=== PATIENT | male | born 1940 | race Caucasian/White ===

== ENCOUNTER 2020-06-16 11:54 | Emergency (ER) | payer OTHER ==
[~2020-06-16] VITALS: Ht 188 cm; Wt 158.8 kg
[~2020-06-16 11:54] MED LIST: ADVIL100 M2 PO; BLOOD PRESSURE1 EA10; CIPROFLOXACIN500 M1 PO; COZAAR100 MG PO; DARVOCET-N 1001 EACH PO; ENDOCET 5-3251 EACH PO; IBUPROFEN 200200 M1 PO; IBUPROFEN200 M2 PO; INDOMETHACIN 5050 M1 PO; KEFLEX500 MG PO; MOBIC15 MG PO; NEURONTIN 300300 M1 PO; NORCO 5-325 TA1 EACH PO; NORVASC 5 MG TAB5 MG PO; NORVASC10 MG PO; NORVASC5 MG PO; PERCOCET 10-321 EACH PO
[2020-06-16] MEDS ORDERED: LEVOTHYROXINE25 MCG PO (12:09)
[2020-06-16 14:09] LABS: HEMATOCRIT 40.9 % (42.0-52.0); HEMOGLOBIN 13.3 gm/dL (14.0-18.0); MCH 30.6 pg (26.0-34.0); MCHC 32.6 g/dL (28.0-37.0); MCV 93.7 fL (80.0-100.0); RBC 4.37 mil/uL (4.50-6.00); RDW 14.7 % (10.5-14.5); WBC 12.5 thou/uL (4.0-11.0)
[2020-06-16 14:18] LABS: CALCIUM 9.1 mg/dL (8.5-10.1); CREATININE 1.1 mg/dL (0.7-1.3)
[2020-06-16] MEDS ORDERED: NORCO 10-325 T1 EACH PO (15:32)
[2020-06-16 17:16] VITALS: BP 158/98
== END 2020-06-16 17:16 | disposition home or self-care (01) ==
LOC: ER 11:54
PROVIDERS: Physician Assistant
DX: S82.142A Displaced bicondylar fracture of left tibia, initial encounter for closed fracture (principal); I10 Essential (primary) hypertension; Z79.899 Other long term (current) drug therapy; V49.9XXA Car occupant (driver) (passenger) injured in unspecified traffic accident, initial encounter; Y93.89 Activity, other specified; Y92.89 Other specified places as the place of occurrence of the external cause; Y99.8 Other external cause status

== ENCOUNTER 2020-06-20 09:26 | Inpatient (IN) | payer OTHER ==
[~2020-06-20] VITALS: Ht 188 cm; Wt 123.5 kg
[~2020-06-20 09:26] MED LIST changes: +LEVOTHYROXINE25 MCG PO; +NORCO 10-325 T1 EACH PO
[2020-06-20] MEDS ORDERED: NORVASC5 MG PO (10:48)
[2020-06-20] MEDS ORDERED: ATORVASTATIN CA10 MG PO (10:49)
[2020-06-20] MEDS ORDERED: LOSARTAN POTASS50 MG PO (10:49)
[2020-06-20] MEDS ORDERED: PROAIR HFA8.5 GM INH (10:50)
[2020-06-20] MEDS ORDERED: MECLIZINE HCL25 MG PO (10:50)
[2020-06-20 11:08] LABS: ABSOLUTE NEUTROPHILS 12.7 thou/uL (1.4-8.2); BASOPHILS 0.6 % (0.0-2.0); EOSINOPHILS 0.3 % (0.0-3.0); HEMATOCRIT 40.4 % (42.0-52.0); HEMOGLOBIN 13.1 gm/dL (14.0-18.0); LYMPHOCYTES 6.3 % (24.0-44.0); MCH 30.3 pg (26.0-34.0); MCHC 32.4 g/dL (28.0-37.0); MCV 93.6 fL (80.0-100.0); MONOCYTES 8.4 % (1.0-8.0); PLATELET COUNT 206 thou/uL (150-400); POLYS 84.4 % (36.0-66.0); RBC 4.31 mil/uL (4.50-6.00); RDW 14.9 % (10.5-14.5)
[2020-06-20] MEDS ORDERED: WIXELA 250-501 EACH INH (11:11)
[2020-06-20 11:21] LABS: CREATININE 1.4 mg/dL (0.7-1.3); POTASSIUM 4.5 mmol/L (3.5-5.1)
[2020-06-20 11:26] LABS: MAGNESIUM 2.1 mg/dL (1.8-2.4)
[2020-06-20 12:36] LABS: URINE BILIRUBIN 2+ (Negative); URINE BLOOD NEGATIVE (Negative); URINE CLARITY CLEAR; URINE GLUCOSE-RANDOM* NEGATIVE (Negative); URINE KETONES TRACE (Negative); URINE LEUKOCYTES-REFLEX NEGATIVE (Negative); URINE NITRITE-REFLEX NEGATIVE (Negative); URINE PROTEIN (DIPSTICK) TRACE (Negative); URINE SPECIFIC GRAVITY >= 1.030 (1.005-1.035)
[2020-06-20 12:43] LABS: ICTOTEST (BILI CONFIRMATORY) Positive (Negative); URINE COLOR AMBER
[2020-06-20 18:23] LABS: ALBUMIN 3.3 g/dL (3.4-5.0); DIRECT BILIRUBIN 0.4 mg/dL (<0.1-0.2); TOTAL BILIRUBIN 1.1 mg/dL (0.2-1.0); TOTAL PROTEIN 6.7 g/dL (6.4-8.2)
[2020-06-21 01:10] VITALS: BP 138/74
[2020-06-21 01:25] VITALS: BP 145/80
--- NOTE | 2020-06-21 03:50 | NUR ---
ASSUMED CARE OF PATIENT FROM ER. PATIENT YELLING, CUSSING, UPSET AND IN PAIN. HYDROCODONE GIVEN. ORIENTATION NEEDED MANY TIMES. DENIES CONCERN ABOUT HOME SITUATION. STATES HE HAS A GIRLFRIEND NAMED MELITON. IS CONCERNED HE DOESN'T HAVE HIS AMEX CC. GAVE HIM CUSTOMER SERVICE #. HAS CELL PHONE. LEG REMAINS IN BRACE. PHOTO TAKEN OF WOUNDS. CLOTHING SOAKED IN URINE. POC GOALS ESTABLISHED.
[2020-06-21 05:30] VITALS: BP 127/77
[2020-06-21 05:44] LABS: HEMATOCRIT 28.5 % (42.0-52.0); MCH 30.1 pg (26.0-34.0); MCHC 33.1 g/dL (28.0-37.0); MCV 90.8 fL (80.0-100.0); RBC 3.14 mil/uL (4.50-6.00); RDW 20.7 % (10.5-14.5)
[2020-06-21 05:48] LABS: HEMOGLOBIN 9.4 gm/dL (14.0-18.0); PLATELET COUNT 664 thou/uL (150-400)
[2020-06-21 06:31] LABS: ALBUMIN 2.2 g/dL (3.4-5.0); CALCIUM 8.5 mg/dL (8.5-10.1); CREATININE 0.9 mg/dL (0.7-1.3); MAGNESIUM 1.6 mg/dL (1.8-2.4); PHOSPHORUS 4.3 mg/dL (2.5-4.9); TOTAL BILIRUBIN 0.2 mg/dL (0.2-1.0); TOTAL PROTEIN 7.4 g/dL (6.4-8.2)
[2020-06-21 08:00] VITALS: BP 143/75
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
[2020-06-21 09:47] LABS: ABSOLUTE NEUTROPHILS 2.1 thou/uL (1.4-8.2); METAMYELOCYTES 1 %; PLATELET ESTIMATE INCREASED
[2020-06-21 09:48] LABS: ANISOCYTOSIS 1+
[2020-06-21 10:30] LABS: HEMATOCRIT 36.6 % (42.0-52.0); MCHC 31.8 g/dL (28.0-37.0); MCV 94.4 fL (80.0-100.0); RBC 3.87 mil/uL (4.50-6.00); RDW 15.1 % (10.5-14.5)
[2020-06-21 10:42] LABS: CALCIUM 8.6 mg/dL (8.5-10.1); CREATININE 1.2 mg/dL (0.7-1.3); POTASSIUM 4.1 mmol/L (3.5-5.1)
[2020-06-21 11:32] LABS: HEMOGLOBIN 11.6 gm/dL (14.0-18.0); WBC 12.9 thou/uL (4.0-11.0)
[2020-06-21 11:51] LABS: OBSERVED RETIC COUNT 2.42 % (0.6-2.6)
[2020-06-21 11:55] LABS: % SATURATION 8 % (20-39); IRON 16 ug/dL (65-175); TIBC 191 ug/dL (250-450)
[2020-06-21 12:25] LABS: FOLIC ACID 7.3 ng/mL (8.6-58.9)
[2020-06-21 14:05] VITALS: BP 124/72
[2020-06-21 19:33] VITALS: BP 135/66
--- NOTE | 2020-06-21 19:55 | NUR ---
Assumed care of pt. at 0700. Pt. was confused and could be partially reoriented to place and time, but continued to forget all given teaching and reorientation. Pt. yelled for assistance throughout the day, was unable to remeber to use the call light. At times pt. would yell out random names and when asked who he was reffering to he would say he didn't know. Pt. became increasingly disoriented into the afternoon. Physician notified, requested consult order for Dr. Tipton, no further orders given. Fall precautions in place.
[2020-06-22 00:06] LABS: GLYCOHEMOGLOBIN (HGB A1C) 6.5 % (4.8-5.6)
[2020-06-22 00:06] LABS: GLYCOHEMOGLOBIN (HGB A1C) 6.4 % (4.8-5.6)
--- NOTE | 2020-06-22 04:06 | NUR ---
PT HAS BEEN CONFUSED AND RESTLESS ALL THRO THE SHIFT. STARTED OFF SHIFT BY RIPPING HIS IV AND YELLING CONTINOUSLY WITH NO SUCCESS IN REORIENTATION. HALDOL IVP GIVEN AT 2005, PT CALMED DOWN ALITTLE, SLEPT FOR ABOUT ONE HR THEN STARTED CALLING OUT AGAIN. PT RIPPED HIS IV AGAIN, WITH BLOOD ALL OVER.MCDONALD CATHETER IN PLACE. CASH APPLICATION CLERK CALLED AND OKAY TO KEEP IV OFF. PT BEEN GIVEN NORCO X1 FOR LLE PAIN. HE SWALLOWS OKAY AND DRINKS WATER WHEN GIVEN. VSS. IMMOBILIZER TO LEFT LLE.ABDOMEN ROUND AND DISTENDED WITH BOWEL SOUNDS PRESENT.MCDONALD STILL IN PLACE WITH DARK YELLOW URINE.FREQUENT CHECKS PROVIDED. PT WILL ALSO NOT KEEP HIS OXYGEN ON.AT THIS TIME , HE APPEARS TO BE QUIETLY SLEEPING.FALL PREC IN PLACE.
[2020-06-22 08:51] VITALS: BP 150/93
--- NOTE | 2020-06-22 08:57 | NUR ---
LATE NOTE: S.C. CONSULT [id number] WAS COMPLETED BY FR. LE ON 06/21/2020.
--- NOTE | 2020-06-22 11:03 | NUR ---
ASSUMED CARE AT 0700. PT IS DISORIENTED AND CONFUSED. DENIES PAIN BUT COMPLAINS OF SOA. WHEN I CAME INTO THE ROOM TO CHECK HIS VS, O2 WAS 87 WITHOUT THE NASAL CANALA. I EDUCATED THE PATIENT THE IMPORTANCE OF KEEPING NC ON. ONCE I PUT NC ON, PT O2 IS NOW 100%. WILL CONTINUE TO MONITOR. LAST BM WAS 6 OR 7 DAYS AGO ACCORDING TO PT. DOCTOR WILL BE ORDERING MEDICATION TO HELP WITH CONSTIPATION. PT IS ON REGULAR DIET; HOWEVER, PT DID NOT EAT BREAKFAST AND VERY CONFUSED ON SAYING THAT WE ARE NOT GIVING HIM BREAKFAST AFTER I EXPLAINED THAT BREAKFAST IS NEAR. PT COMPLAINS OF DISCOMFORT. I HELPED TO READJUST PATIENT. I DID NOT GIVE VITAMIN B12 DUE TO IV BEING REMOVED FROM PT LAST NIGHT. DENIES ANY CHILLS AND NO FEVER. MCDONALD IS INTACT
[2020-06-22 14:00] VITALS: BP 139/76
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
[2020-06-22 20:22] VITALS: BP 158/93
--- NOTE | 2020-06-23 03:26 | NUR ---
PT IS ALERT TO SELF AND SOMETIMES SITUATION. PT IS CONFUSED. PT YELLS OUT INTO THE LAKHANI AND WANTS TO GET OUT OF THE BED. PT HAS NO IV ACCESS. PT TAKES MEDS WHOLE. PT HAS A MCDONALD. CLOUDY RED URINE IS IN THE BAG. I REPLACED THE STAT LOCK TWICE. PT CONTINUES TO PULL AT THE MCDONALD. PT PULLS ON ANYTHING ATTACHED TO HIM. PT OFTEN TAKES OFF HIS GOWN. WILL CONTINUE TO MONITOR.
[2020-06-23 07:55] VITALS: BP 136/82
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
--- NOTE | 2020-06-23 16:08 | NUR ---
PT IS AOX1, VSS, NO S/S OF PAIN AT THIS TIME. MCDONALD CATHETER D/C'D. PT HAS A POOR APPETITE, NO S/S INSULIN RECEIVED WHEN HE REFUSES TO EAT. PT TURNED Q 2 HRS. PT HEELS ELEVATED ON PILLOWS, 2L O2 PER NC. FALL PRECAUTIONS IN PLACE. WILL CONTINUE TO MONITOR.
[2020-06-23 16:20] VITALS: BP 140/83
[2020-06-23 19:16] VITALS: BP 146/82
--- NOTE | 2020-06-24 02:27 | NUR ---
ASSESSED AT START OF SHIFT 1900. PT ALERT TO SELF CONFUSED, RESTLESS AND YELLING OUT. AGITATION AND PAIN MED GIVEN. PT NOW CALM AND RESTING. ON 3L OF O2. TAKES IT OFF SO FREQ ROUNDING DONE. RIGHT KNEE IMMBOLIZER INTACT. PO FLUIDS GIVEN. NO INSULIN COVERAGE POOR APPETITE AND REFUSED NIGHT TIME SNACK. FALL PREC IN PLACE AND CALL LIGHT IN REACH WILL CONT TO MONITOR.
--- NOTE | 2020-06-24 14:51 | NUR ---
PT IS AOX1, YELLS OUT AND CALLS FOR DIFFERENT FAMILY MEMBERS. PT IS INCONTINENT OF URINE, CALLED FOR HELP BEFORE BM TODAY. PT TURNED Q2 HRS BY STAFF AND HEELS ARE ELEVATED WITH PILLOWS. FALL PRECAUTIONS IN PLACE. TAKES PILLS WHOLE WITH SIPS OF WATER. WILL CONTINUE TO MONITOR.
--- NOTE | 2020-06-24 15:35 | EKG ---
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
[2020-06-24 16:17] VITALS: BP 138/82
--- NOTE | 2020-06-24 16:22 | NUR ---
ON-GOING ASSESSMENT: CM REVIEWED CHART. PER PSYCH PT IS CONFUSED AND UNABLE TO MAKE DECISIONS AND STATING TO ACTIVATE DPOA IF HE HAS ONE. CM REACHED OUT TO PTS GRANDDAUGHTER YASH AND LEFT A VM TO CLARIFY IF SHE HAS ANY PAPERWORK SHOWING SHE IS THE DPOA. [facility] IS FOLLOWING AND STILL AWAITING AUTH AT THIS TIME. CM FAXED THEM UPDATED CLINICAL. PT IS ALSO GETTING AN ULTRASOUND OF UPPER EXTREMITY. CM WILL CONTINUE TO FOLLOW TO ASSIST NEEDED.
[2020-06-24 20:00] VITALS: BP 143/77
[2020-06-25 04:00] VITALS: BP 154/89
--- NOTE | 2020-06-25 05:10 | NUR ---
Assumed care on 06/24/30 @ 19:45, Regular diet, up with assist. Cellulitis in lower extremities bilat, worse in the right leg. Cleaned with NS, Xerofoam applied and wrapped in Kerlex. Morphine push provided for pain in lower extremities. IV antibiotics tolerated well. IV site is right AC. Onward 5/325 provided for 6/10 pain in lower extremities, follow up assessment noted to be sleeping.
[2020-06-25 07:25] VITALS: BP 134/71
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
--- NOTE | 2020-06-25 11:16 | NUR ---
NORCO 5/325 GIVEN PO PRN AT 0930 FOR REPRTED GENERALIZED PAIN "ALL OVER" RATED A 10 ON 1-10 SCALE-WAS SLEEPING QUIETLY 5-10 MINUTES AFTER ADMINISTRATION
[2020-06-25 12:05] LABS: HEMATOCRIT 35.4 % (42.0-52.0); HEMOGLOBIN 11.4 gm/dL (14.0-18.0); MCH 29.9 pg (26.0-34.0); MCHC 32.1 g/dL (28.0-37.0); MCV 93.2 fL (80.0-100.0); RBC 3.8 mil/uL (4.50-6.00); WBC 11.9 thou/uL (4.0-11.0)
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
[2020-06-25 16:20] VITALS: BP 135/75
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
--- NOTE | 2020-06-26 02:05 | NUR ---
ASSUMED PT CARE AT 1915. PT IS ALERT TO SELF AND IS CONFUSED. PT'S VSS. PT YELLS INTO THE LAKHANI WHEN HE IS AWAKE, HE IS EASY TO REDIRECT BUT FORGETS QUICKLY. PT TAKES MEDICATION WHOLE WITH WATER. PT USES URIANL IN THE BED WHEN ASSISTED. PT PULLS OFF HIS GOWN AND COVERS CONSTANTLY. WILL CONTINUE TO MONITOR.
[2020-06-26 07:30] VITALS: BP 149/80
[2020-06-26 09:55] VITALS: BP 149/80
--- NOTE | 2020-06-26 11:12 | NUR ---
PT CARE ASSUMED AT 0700. ALERT AND ORIENTED TO SELF. PT IS MORE CALM TODAY THEN IN THE LAST FEW DAYS. RESTING IN HIS BED WITH INCONTINENT URINE EPISODES. ACHS WITH NO COVERAGE NEEDED AT THIS POINT. TAKES MEDS WHOLE WITH WATER. AFEBRILE TODAY. BRACE ON LEFT LEG. PAIN MANAGED WELL WITH PAIN MEDICATION ON BOARD. IV PATENT WITH NO REDNESS OR EDEMA, SALINE LOCKED. PT ON BEDREST. FALL PROTOCOL IN PLACE. CALL LIGHTI N REACH. WILL CONTINUE TO MONITOR.
== END 2020-06-26 15:58 | DRG 70 ==
LOC: ER 09:26 → EROBS 13:52 → 4S 13:52 → EROBS 13:52 → 4S 06-21 01:13
PROVIDERS: Emergency Medicine; Hospitalist; Nurse Practitioner Family; ADMIT Internal Medicine; ATTEND Internal Medicine
DX: G93.41 Metabolic encephalopathy (principal); N17.0 Acute kidney failure with tubular necrosis; E43 Unspecified severe protein-calorie malnutrition; S82.252A Displaced comminuted fracture of shaft of left tibia, initial encounter for closed fracture; T74.01XA Adult neglect or abandonment, confirmed, initial encounter; E86.0 Dehydration; Z20.828 Contact with and (suspected) exposure to other viral communicable diseases; Z96.641 Presence of right artificial hip joint; I10 Essential (primary) hypertension; E11.9 Type 2 diabetes mellitus without complications; D64.9 Anemia, unspecified; E66.9 Obesity, unspecified; E53.8 Deficiency of other specified B group vitamins; E83.42 Hypomagnesemia; K59.00 Constipation, unspecified; R41.0 Disorientation, unspecified; S82.832A Other fracture of upper and lower end of left fibula, initial encounter for closed fracture; Z87.891 Personal history of nicotine dependence; Z68.35 Body mass index [BMI] 35.0-35.9, adult; Z47.89 Encounter for other orthopedic aftercare; Z23 Encounter for immunization; Z79.899 Other long term (current) drug therapy; V89.2XXA Person injured in unspecified motor-vehicle accident, traffic, initial encounter; Y93.89 Activity, other specified; Y92.89 Other specified places as the place of occurrence of the external cause; Y99.8 Other external cause status
CPT/HCPCS: 10102

== ENCOUNTER 2020-06-30 12:33 | Emergency (ER) | payer OTHER ==
[~2020-06-30] VITALS: Ht 188 cm; Wt 126.1 kg
[~2020-06-30 12:33] MED LIST changes: +ATORVASTATIN CA10 MG PO; +LOSARTAN POTASS50 MG PO; +MECLIZINE HCL25 MG PO; +PROAIR HFA8.5 GM INH; +WIXELA 250-501 EACH INH
[2020-06-30 12:35] VITALS: BP 115/91
[2020-06-30 13:05] LABS: ABSOLUTE NEUTROPHILS 8.7 thou/uL (1.4-8.2); BASOPHILS 1.3 % (0.0-2.0); EOSINOPHILS 3.2 % (0.0-3.0); HEMATOCRIT 37.3 % (42.0-52.0); HEMOGLOBIN 11.9 gm/dL (14.0-18.0); LYMPHOCYTES 9.1 % (24.0-44.0); MCH 29.7 pg (26.0-34.0); MONOCYTES 8.1 % (1.0-8.0); PLATELET COUNT 267 thou/uL (150-400); POLYS 78.3 % (36.0-66.0); RBC 4.01 mil/uL (4.50-6.00); RDW 15.3 % (10.5-14.5); WBC 11.2 thou/uL (4.0-11.0)
[2020-06-30 13:19] LABS: ANION GAP 9 mmol/L (7-16); BUN 27 mg/dL (7-18); CALCIUM 8.9 mg/dL (8.5-10.1); CHLORIDE 105 mmol/L (98-107); CO2 31 mmol/L (21-32); CREATININE 1.1 mg/dL (0.7-1.3); GLUCOSE 146 mg/dL (74-106); POTASSIUM 4.2 mmol/L (3.5-5.1); SODIUM 145 mmol/L (136-145)
[2020-06-30 13:29] LABS: ALBUMIN 2.3 g/dL (3.4-5.0); SGOT 49 U/L (15-37); SGPT 41 U/L (30-65); TOTAL BILIRUBIN 0.3 mg/dL (0.2-1.0); TOTAL PROTEIN 6.8 g/dL (6.4-8.2); TROPONIN-I <0.06 ng/mL (<0.06)
[2020-06-30] MEDS ORDERED: RISPERDAL0.5 MG PO (14:48)
[2020-06-30 16:10] LABS: URINE BILIRUBIN NEGATIVE (Negative); URINE BLOOD 2+ (Negative); URINE CLARITY CLEAR; URINE COLOR YELLOW; URINE GLUCOSE-RANDOM* NEGATIVE (Negative); URINE KETONES NEGATIVE (Negative); URINE LEUKOCYTES-REFLEX NEGATIVE (Negative); URINE NITRITE-REFLEX NEGATIVE (Negative); URINE PROTEIN (DIPSTICK) NEGATIVE (Negative); URINE UROBILINOGEN 0.2 E.U./dl (0.2-1.0)
[2020-06-30 16:32] LABS: AMP/METHAMP Negative (Negative); BARBITURATES Negative (Negative); BENZODIAZEPINES Negative (Negative); COCAINE Negative (Negative); METHADONE Negative (Negative); OPIATES POSITIVE (Negative); PCP Negative (Negative)
[2020-06-30 16:33] LABS: BACTERIA-REFLEX 1-9 Few /HPF (None Seen); CASTS None Seen /LPF (None Seen); CRYSTALS None Seen /LPF (None Seen); SQUAMOUS None Seen /LPF (0-3); URINE RBC None Seen /HPF (0-2); URINE WBC-REFLEX None Seen /HPF (0-5)
[2020-06-30] MEDS ORDERED: NORCO 5-325 TA1 EAC2 PO (17:26)
--- NOTE | 2020-06-30 17:57 | EKG ---
[facility] [place] [address] ELECTROCARDIOGRAM REPORT Name: SILVINO MARQUES Room #: [facility]#: [id number] Admission: 06/30/20 Attend Phys: Discharge: Date of : 40 Report #: [id number] THIS REPORT FOR: cc: Kanu Hernandez James D. DO Lundgren, Craig H. 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 : 1940 Requested By: Andreea Rene Order Number: [id number] MD: Vignesh Mrcae Measurements Intervals [place] Rate: 83 P: -67 MS: 142 QRS: 40 QRSD: 149 T: 22 QT: 422 QTc: 496 Interpretive Statements Normal sinus rhythm Atrial premature complexes Right bundle branch block Compared to ECG 06/24/2020 10:49:45 Atrial premature complex(es) now present Sinus tachycardia no longer present Electronically Signed On 06-30-2020 17:57:31 STEERSMAN by Vignesh Mcrae [email or web address] <ELECTRONICALLY SIGNED> By: Vignesh Mcrae MD, FAC 06/30/20 1757 1426 1426 Vignesh Mcrae MD, [facility] /EPI
== END 2020-06-30 18:20 ==
LOC: ER 12:33
PROVIDERS: Physician Assistant
DX: R41.82 Altered mental status, unspecified (principal); D64.9 Anemia, unspecified; S82.142D Displaced bicondylar fracture of left tibia, subsequent encounter for closed fracture with routine healing; I10 Essential (primary) hypertension; E11.9 Type 2 diabetes mellitus without complications; Z98.890 Other specified postprocedural states; Z79.899 Other long term (current) drug therapy; R14.0 Abdominal distension (gaseous); X58.XXXD Exposure to other specified factors, subsequent encounter